=== PATIENT | female | born 1950 | race Caucasian/White ===

== ENCOUNTER 2024-12-13 18:58 | Emergency (ER) | payer OTHER, SELFPAY ==
[2024-12-13 19:04] VITALS: BP 137/75; PULSE 68; RESP 16; TEMP 36.6; O2SAT 99; BMI 23.9
--- NOTE | 2024-12-13 19:09 | DI.RAD.S_ITS ---
PROCEDURE: XR FOOT RT MIN 3V INDICATIONS: pain/swelling in right foot TECHNIQUE: 3 views of the foot were acquired. COMPARISON: None. FINDINGS: No acute fracture or dislocation. The Lisfranc interval is preserved on the nonweightbearing view. Mild 1st MTP osteoarthritis with dorsal amorphous soft tissue calcification and adjacent subcutaneous edema. Achilles calcaneal and plantar calcaneal enthesopathy. 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 Dictated by: Patrick Montenegro M.D. on 12/13/2024 at 19:54 Approved by: Patrick Montenegro M.D. on 12/13/2024 at 19:55
--- NOTE | 2024-12-13 22:19 | ED.EXTPRO ---
HPI - Extremity Problem General Chief complaint: Extremity Problem,Nontraumatic Stated complaint: foot px Time Seen by Provider: 12/13/24 22:19 Source: patient Mode of arrival: Wheelchair History of Present Illness HPI Narrative: 74-year-old female presenting for right foot pain, she states that she noticed that her right foot started to hurt while driving home [place] today. She states that it is primarily in her big toe but states that it has spread to her entire foot. No trauma or falls, states that she has been ambulating/walking more than normal due to the fact that she is been going up and down a ladder for painting. Took 400 mg ibuprofen, but states that symptoms persistent therefore decided come into the ED for further evaluation treatment. Patient denies any other symptoms such as headache visual disturbances chest pain shortness breath fever chills nausea vomiting abdominal pain or any other GI/ symptoms time. Related Data Previous Rx's Medication Instructions Recorded ibuprofen 600 mg tablet 600 mg PO Q8H PRN pain 5 days #15 12/13/24 tabs Allergies Allergy/AdvReac Type Severity Reaction Status Date / Time No Known Drug Allergies Allergy Verified 12/13/24 19:04 Review of Systems Review of Systems Narrative: General: Denies fever, chills, weight loss HEENT: Denies headache, eye drainage, eye irritation, head trauma, sore throat, voice change Cardiovascular: Denies any chest pain, palpitations, tachycardia Respiratory: Denies any shortness of breath, cough, wheeze, stridor GI/: Denies any abdominal pain, nausea, vomiting, diarrhea, bright red blood per rectum, melanotic stools, urinary frequency, urinary retention, dysuria, hematuria MSK: Right toe pain Skin: Denies any rashes, lesions, discoloration Neuro: Denies any headache, lightheadedness, dizziness, fainting, weakness Psych: Denies SI/HI Patient History Social History Smoking Status: Never smoker Smoking Status: Never smoker Exam Narrative Exam Narrative: General: Cooperative, well-developed, not in acute distress HEENT: Normocephalic, atraumatic, PERRLA, normal sclera, eyelids normal Neck: Active full range of motion, atraumatic Chest: Normal to inspection, negative crepitus, no overlying erythema ecchymosis Respiratory: Normal respiratory effort, not in acute respiratory distress, clear to auscultation bilaterally negative cough, wheeze, tachypnea, rhonchi, rales Cardiology: Regular rate rhythm negative gallop, murmur, rubs GI/: No tenderness to palpation, soft, non rigid, normal to inspection, exam deferred MSK: Under tenderness to palpation of the right great toe, very mild erythema noted to the top of the right toe otherwise no streaking no erythema no edema, neurovascularly intact bilateral lower extremities Skin: No rashes or lesions noted Neuro: Alert awake oriented x3, moves all 4 extremities spontaneously, cranial nerves intact, able to answer all questions appropriately follows commands appropriately Psych: Cooperative, negative suicidal or homicidal ideations Initial Vital Signs Initial Vital Signs: Vital Signs Temperature 98 F 12/13/24 19:04 Pulse Rate 68 12/13/24 19:04 Respiratory Rate 16 12/13/24 19:04 Blood Pressure 137/75 12/13/24 19:04 Pulse Oximetry 99 12/13/24 19:04 Oxygen Delivery Method Room Air 12/13/24 19:04 Course Orders Ordered: ED Orders 12/13/24 19:09 XR foot RT min 3V Stat Vital Signs Vital signs: Vital Signs - 8 hr 12/13/24 19:04 Temperature 98 F Pulse Rate 68 Respiratory Rate 16 Blood Pressure 137/75 Pulse Oximetry 99 Oxygen Delivery Method Room Air MDM - Extremity (Nontraumatic) Imaging Data Extremity x-ray #1: Radiologist's Impression: [address] [address] XRay Report Signed Patient: Mounika Larios MR#: [id number] : 1950 Acct:[id number] Age/Sex: 74 / F Date of Service: 12/13/24 Loc: ED Accession Number: [id number] Procedure: XR foot RT min 3V Ordering Provider: Avinash Roman D.O. PROCEDURE: XR FOOT RT MIN 3V INDICATIONS: pain/swelling in right foot TECHNIQUE: 3 views of the foot were acquired. COMPARISON: None. FINDINGS: No acute fracture or dislocation. The Lisfranc interval is preserved on the nonweightbearing view. Mild 1st MTP osteoarthritis with dorsal amorphous soft tissue calcification and adjacent subcutaneous edema. Achilles calcaneal and plantar calcaneal enthesopathy. 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 MDM Narrative Medical decision making narrative: 74-year-old female past medical history of hyperlipidemia presents for right toe pain states it started spontaneously while she was driving earlier today, has no personal history of gout, she states that the pain started getting worse took 400 mg Motrin prior to arrival and had slight improvement of her symptoms but still having significant amount of pain with ambulation therefore decided come into the ED for further evaluation treatment. On exam neurovascularly intact, x-ray showing osteoarthritis versus gout, there is only very mild erythema to the top of the toe otherwise no streaking no other signs of infection, very low suspicion for septic arthritis, I offered the patient possible arthrocentesis of the joint space however she would like to decline states that she would rather have this done by a sheet metal assembler who she states she has seen in a year ago due to history of arthritis in her feet/toes of the affected foot. Patient will be sent home with an Joo wrap, crutches and instructed to continue anti-inflammatories/NSAIDs for acute gouty flare-up. Discharge Plan Departure Patient Disposition: Home Clinical Impression: Pain in right toe(s) Instructions: DI for Gout Activity Restrictions/Additional Instructions: Please follow up with your sheet metal assembler and your primary care doctor Continue to take ibuprofen 600 mg 3 times a day for the next 3-5 days for your symptoms Please read the discharge instructions sheet carefully and bring all papers to all doctor follow-up visits, as it may contain information that your doctor may want to see. Disease processes change and evolve, if your symptoms worsen or if you develop any new symptoms that are concerning to you please return for evaluation. Your evaluation today does not show any evidence of any life-threatening/serious illnesses requiring admission to the hospital or surgery. Please follow-up with your doctor for re-evaluation in approximately 1 day. Seek immediate medical attention for any worrisome symptoms. *If you do not have a primary care provider please contact the [facility] Resource line at [phone]. They will ask some questions about your medical history and help get you set up with a doctor in the community. Prescriptions: New ibuprofen 600 mg tablet 600 mg PO Q8H PRN (Reason: pain) 5 Days Qty: 15 0RF Referrals: Cintia Miller PA-C [Primary Care Provider] - Stand Alone Forms: Patient Portal/API/Survey
[2024-12-13 22:43] VITALS: BP 128/60; PULSE 58; RESP 20; O2SAT 95
[2024-12-13] MEDS: OXYCODONE/ACETAMINOPHEN 5/325 TABLET 1 TAB PO (22:44)
== END 2024-12-13 22:50 | disposition home or self-care (01) ==
PROVIDERS: Emergency Provider Student in an Organized Health Care Education/Training Program; PCP Physician Assistant
DX: M79.674 Pain in right toe(s) (principal)
CPT/HCPCS: 73630; 99283

== ENCOUNTER → 2025-06-14 16:05 | Outpatient (CLI) | payer OTHER, SELFPAY ==
--- NOTE | 2025-06-14 16:10 | DI.RAD.S_ITS ---
PROCEDURE: XR LUMBAR SPINE 2-3V INDICATIONS: LOW BACK PAIN TECHNIQUE: 3 views of the lumbar spine were acquired. COMPARISON: None. FINDINGS: Lumbar spine curvature and alignment: Mild rightward curve appreciated. Bones: Minimal chronic wedging of the T9 through L1 vertebral bodies noted Disc spaces: Moderate degenerative disc disease is seen at T10-11 through L2-3 with mild L3-4 L4-5 and L5-S1 degenerative disc disease. Moderate L4-5 severe L5-S1 degenerative facet disease . Soft tissues: No soft tissue swelling, calcification or mass. IMPRESSION: Degeneration Dictated by: Dell Arias M.D. on 06/15/2025 at 13:47 Approved by: Dell Arias M.D. on 06/15/2025 at 13:48
== END ==
PROVIDERS: PCP Physician Assistant; Referring Provider Internal Medicine; Visit Provider Internal Medicine
DX: M51.34 Other intervertebral disc degeneration, thoracic region (principal); M51.360 Other intervertebral disc degeneration, lumbar region with discogenic back pain only; M51.370 Other intervertebral disc degeneration, lumbosacral region with discogenic back pain only; M47.816 Spondylosis without myelopathy or radiculopathy, lumbar region; M47.817 Spondylosis without myelopathy or radiculopathy, lumbosacral region
CPT/HCPCS: 72100